=== PATIENT | female | born 1970 | race Caucasian/White ===

== ENCOUNTER → 2020-11-13 | Outpatient (CLI) | payer OTHER ==
[~2020-11-13] VITALS: Ht 175.3 cm; Wt 65.9 kg
[~2020-11-13] MED LIST: LIDOCAINE 1% INJ 20 ML 20 ML VIAL INJ ONE
--- NOTE | 2020-11-13 12:50 | Diagnostic Imaging Report ---
INDICATION: Left breast calcifications. Patient presents for stereotactic biopsy. DETAILS OF THE PROCEDURE: The patient was brought to the stereotactic suite and placed in the chair in a sitting upright position. The left breast was positioned mediolateral. The cluster of microcalcifications in the medial left breast were stereotactically targeted. The medial left breast was prepped and draped in the usual sterile fashion. A small amount of 1% lidocaine was utilized for local anesthesia. The 8 gauge vacuum-assisted stereotactic needle was advanced and placed with its tip per stereotactic coordinates. A total of 4 core biopsies was obtained with a vacuum-assisted device. Specimen radiograph was obtained. The radiograph demonstrates calcifications in all 4 samples, most numerous in sample labeled #2. All images were viewed on a dedicated workstation. The marker clip was then deployed. The needle was removed and hemostasis was obtained using manual compression. Followup 2D CC and ML mammography was performed. There was some migration of the clip which is at the nipple line on the CC view; however, the previously seen cluster of microcalcifications in the more medial left breast are now absent. IMPRESSION: Successful stereotactic biopsy of a cluster of microcalcifications in the medial left breast utilizing the vacuum assisted device. Pathology results are currently pending. Dictated by: Dictated on workstation # [id number]
== END ==
LOC: RAD 10:45
DX: R92.1 Mammographic calcification found on diagnostic imaging of breast (principal)
CPT/HCPCS: 19081; A4648